=== PATIENT | female | born 1960 | race Caucasian/White ===

== ENCOUNTER → 2017-04-20 | Outpatient (CLI) | payer BC, SELFPAY ==
--- NOTE | 2017-04-20 16:13 | US ---
EXAM DESCRIPTION: Soft Tissue,Head/Neck CLINICAL HISTORY: 56 years Female, HYPERTHYROIDISM COMPARISON: None. FINDINGS: The right thyroid lobe measures 4.3 x 1.3 x 1.6 cm and is of fairly homogenous internal echogenicity without hyperemia. There is a questionable 4 mm solid nodule mid right thyroid lobe. There is a second 4 mm noncalcified solid nodule elsewhere in the mid right thyroid lobe. The thyroid isthmus is not thickened. The left thyroid lobe measures 4.2 x 1.4 x 1.1 cm and is also of fairly homogenous internal echogenicity without hyperemia. There is a 6 mm solid and cystic nodule in the mid/superior pole of the left thyroid lobe without internal calcification or peripheral hypervascularity. IMPRESSION: Bilateral subcentimeter thyroid nodules measuring up to 6 mm diameter as detailed above. Otherwise unremarkable exam. Follow-up ultrasound in 9-12 months is recommended to document stability. Electronically signed by: Michael Beyer MD 04/20/2017 4:11 PM CDT Workstation: [id number]
--- NOTE | 2017-04-20 16:58 | MRI ---
EXAM: Brain w/wo Contrast CLINICAL INDICATION: 56-year-old female with hyperthyroidism COMPARISON: None. TECHNIQUE: Multiplanar, multi-sequence MR imaging of the brain and pituitary gland, including dynamic pituitary enhancement pre-and post intravenous administration of gadolinium. FINDINGS: Brain: No abnormal increased signal intensity is present on diffusion-weighted imaging to suggest restricted diffusion/acute infarction. FLAIR weighted imaging reveals minimal foci of patchy increased signal intensity present in a subcortical and periventricular deep white matter distribution, a nonspecific, may be seen in the setting of sequela of migraine, sequela of postinfectious, postinflammatory process, atypical demyelination and small vessel ischemic change. There is no evidence of intracranial hemorrhage, mass or edema. Midline structures are within normal limits. No abnormal parenchymal post gadolinium enhancement. The ventricles and basal cisterns are normal in size and configuration. Major intracranial flow voids are identified. The paranasal sinuses and mastoid air cells are patent. Pituitary: The pituitary gland is normal in size and morphology measuring up to 4 mm in craniocaudal dimension, however inhomogeneous in signal and enhancement pattern with a focal right-sided area of nonenhancement, measuring 3 x 2 mm, (series 09/04/2000, image five) raising the concern for microadenoma. The pituitary stalk is unremarkable. IMPRESSION: 1. Focal area of decreased signal intensity on postcontrast imaging within the right-sided pituitary gland raising the concern for pituitary microadenoma. 2. FLAIR weighted imaging reveals minimal foci of patchy increased signal intensity present in a subcortical and periventricular deep white matter distribution, a nonspecific, may be seen in the setting of sequela of migraine, sequela of postinfectious, postinflammatory process, atypical demyelination and small vessel ischemic change. Electronically signed by: Yoly Wang MD 04/20/2017 4:57 PM CDT Workstation: [id number]
== END | disposition home or self-care (01) ==
LOC: MRI 08:08
PROVIDERS: ATTEND Nurse Practitioner Family
DX: E05.90 Thyrotoxicosis, unspecified without thyrotoxic crisis or storm (principal)

== ENCOUNTER → 2017-07-10 | Outpatient (CLI) | payer BC | LOC: GMAB 16:52 | PROVIDERS: ATTEND Family Medicine | DX: E05.90 Thyrotoxicosis, unspecified without thyrotoxic crisis or storm (principal) ==